=== PATIENT | female | born 1975 | race Caucasian/White ===

== ENCOUNTER 2017-12-30 | Outpatient (CLI) | payer OTHER | END 2017-12-30 08:24 | disposition home or self-care (01) | DX: Z12.31 Encounter for screening mammogram for malignant neoplasm of breast (principal) ==

== ENCOUNTER 2019-01-28 10:14 | Outpatient (CLI) | payer OTHER ==
--- NOTE | 2019-01-28 10:47 | MMO ---
Bilateral MAMMO Bilat Screen [facility]. CLINICAL HISTORY: Patient is 43 years old and is seen for screening. The patient has no family history of breast cancer. The patient has no personal history of cancer. The patient has a history of right Ultrasound Guided Core Biopsy in July, - benign and bilateral Implants in 2011. VIEWS: The views performed were: bilateral craniocaudal with tomosynthesis and bilateral mediolateral oblique with tomosynthesis. FILMS COMPARED: The present examination has been compared to prior imaging studies performed at [facility] on 12/30/2017, and at [facility] on 06/08/2013, 11/23/2014 and 12/27/2016. MAMMOGRAM FINDINGS: The breasts are heterogeneously dense, which could obscure a lesion on mammography. Normal implants are present. There are no suspicious masses, suspicious calcifications, or new areas of architectural distortion. IMPRESSION: THERE IS NO MAMMOGRAPHIC EVIDENCE OF MALIGNANCY. A ROUTINE FOLLOW-UP MAMMOGRAM IN 1 YEAR IS RECOMMENDED. THE RESULTS OF THIS EXAM WERE SENT TO THE PATIENT. ACR BI-RADS Category 2 - Benign finding MAMMOGRAPHY NOTE: 1. A negative mammogram report should not delay a biopsy if a dominant of clinically suspicious mass is present. 2. Approximately 10% to 15% of breast cancers are not detected by mammography. 3. Adenosis and dense breasts may obscure an underlying neoplasm. Reported by: GARRETT GEE MD Electonically Signed: [id number]
== END 2019-01-28 10:15 | disposition home or self-care (01) ==
LOC: BICMAMMO 10:14
PROVIDERS: ATTEND Family Medicine
DX: Z12.31 Encounter for screening mammogram for malignant neoplasm of breast (principal); Z91.89 Other specified personal risk factors, not elsewhere classified; Z98.82 Breast implant status
CPT/HCPCS: 77063; 77067

== ENCOUNTER 2019-02-12 11:25 | Observation (INO) | payer OTHER ==
[2019-02-12 12:13] LABS: Mean Corpuscular Hemoglobin 32.6 pg (27.0-31.0); Mean Corpuscular Volume 95.8 fL (78.0-98.0); RBC Distribution Width 11.3 % (11.5-14.5); White Blood Cell (WBC) Count 8.1 thou/uL (4.8-10.8)
[2019-02-12 12:23] LABS: ALT (SGPT) 17 U/L (8-55); AST (SGOT) 27 U/L (5-34); Albumin 4.6 g/dL (3.5-5.0); Alkaline Phosphatase 39 U/L (40-110); Anion Gap 13 mmol/L (10-20); BUN (Urea Nitrogen) 16 mg/dL (7.0-18.7); Bilirubin, Total 0.3 mg/dL (0.2-1.2); CK (CPK) 211 U/L (29-168); Calc. Creatinine Clearance 0 mL/min (70-130); Calcium 9.6 mg/dL (7.8-10.44); Carbon Dioxide 22 mmol/L (22-29); Chloride 106 mmol/L (98-107); Estimated GFR-MDRD 83; Globulin 3.2 g/dL (2.4-3.5); Glucose 102 mg/dL (70-105); Lipase 12 U/L (8-78); Potassium 4.3 mmol/L (3.5-5.1); Protein, Total 7.8 g/dL (6.0-8.3); Sodium 137 mmol/L (136-145)
[2019-02-12 12:38] LABS: Band 7 % (5-11); Eosinophils 1 % (0-10); Lymphocytes 12 % (21-51); MDiff Complete? YES; Mean Platelet Volume 9.4 fL (7.4-10.4); Monocytes 5 % (0-10); Neutrophil 72 % (42-75); Platelet Clumps SLIGHT; Platelet Morphology Comment PLT clumps seen-ADEQ; Polychromasia SLIGHT = 2-3 cells (100X) (0-2/hpf); Reactive Lymphocytes 3 % (0-10)
--- NOTE | 2019-02-12 13:03 | RAD ---
SINGLE VIEW CHEST: Date: 02/12/19 COMPARISON: 08/10/15. HISTORY: Two episodes of heart racing and near syncope today. Chest pain. FINDINGS: Single view of the chest shows a normal sized cardiomediastinal silhouette. There is no evidence of c onsolidation, mass, or pleural effusion. The bones are unremarkable. IMPRESSION: No evidence of acute cardiopulmonary disease. POS: TPC
--- NOTE | 2019-02-12 13:29 | CT ---
CTA CHEST WITH CONTRAST: Date: 02/12/19 COMPARISON: None. HISTORY: Two episodes of heart racing and near syncope today. TECHNIQUE: Multiple contiguous axial images were obtained in a CTA of the chest with contrast per pulmonary embo lism protocol. 3D oblique MIP reformats and direct coronal reformats were performed. FINDINGS: The pulmonary arteries are well opacified without filling defects to suggest pulmonary emboli. The he art is normal in size without focal cardiac abnormality. No hilar or mediastinal lymphadenopathy seen . No pneumothorax or pleural effusions seen. No focal infiltrates are seen in the lungs. No suspicious pulmonary masses are seen. The osseous structures and visualized subdiaphragmatic structures are unremarkable. The patient has b ilateral breast implants. IMPRESSION: No evidence of pulmonary thromboembolism. POS: TPC
[2019-02-12 16:16] VITALS: BMI 23.7
[2019-02-12] MEDS: Acetaminophen 325 MG TAB PO PRN ×2 (18:12→22:26)
[2019-02-12] MEDS ORDERED: ISOVUE-370 76%-LOCM 1 ML ONE (18:16)
[2019-02-12 18:26] LABS: Troponin I Less than 0.010 ng/mL (< 0.028)
[2019-02-12] MEDS: Famotidine 20 MG TAB PO SCH (20:03)
[2019-02-12] MEDS ORDERED: traMADol HCl 50 MG TAB PO PRN (21:29)
--- NOTE | 2019-02-13 02:53 | HP ---
CHIEF COMPLAINT: Near syncope. HISTORY OF PRESENT ILLNESS: This patient is a 43-year-old female who had a near syncopal episode today while out shopping. She felt generally weak and lightheaded, sat down and felt a little better, but was still feeling "off." She drank some water and went to her car, started to drive in and then the symptoms came back again. She stopped, noted some palpitations. She reclined in her car seat for about 15-20 minutes and then had a 3rd episode, still felt significant lightheadedness. She denied any specific loss of consciousness, chest pain, vertigo, or diaphoresis. She did feel a little nausea and headache since arriving in the hospital and some mild shortness of breath. The patient was clear that she had eaten breakfast this morning and was not likely to be hypoglycemic. This patient had an episode similar to this about 3 years ago. It was actually in August of 2015. She subsequently was seen in the emergency department, but had an appointment with Dr. Rivas. She was referred to his office and discharged from the ER. He did monitor on the patient for a couple weeks, found no significant findings and cleared her from cardiac perspective. She subsequently has seen other physicians including Dr. Rosas who referred to a pituitary specialist and had MRI of the head. She has had a referral to an rehabilitation technician who is working at possible adrenal insufficiency, but indicates her numbers are borderline. She is now following with Dr. Tompkins and is working on hormones. She is on a progesterone pill and testosterone cream to this point. No other etiologies have been discovered. The patient reports that she has fairly frequent headaches. She has generalized fatigue, generalized muscle aches and frequent episodes of feeling generally off-balance or lightheaded, but nothing to the extent of today's since 2016. REVIEW OF SYSTEMS: Palpitations, mild shortness of breath and chronic fatigue. She also reported some numbness in her left upper and lower extremity for about 2 weeks that appears to be better and felt like the entire extremities were somewhat numb and slightly weak. PAST MEDICAL HISTORY: As above. PAST SURGICAL HISTORY: Breast implants, thyroid lumpectomy which was benign in 2004. FAMILY HISTORY: Father had hypertension. Mother had hypertension and diabetes. Sister had leukemia. SOCIAL HISTORY: She denies tobacco or drugs. Has alcohol about three times per week. She is . She is full code and her would be her surrogate decision maker. ALLERGIES: NONE. MEDICATIONS: Progesterone orally and testosterone cream. PHYSICAL EXAMINATION: VITAL SIGNS: BP 129/90, pulse 82, O2 saturations 99% on room air, respirations 21. GENERAL APPEARANCE: Age-appropriate female, no distress. Awake, alert, oriented, pleasant, cooperative. HEENT: YAYO, no OP lesions. Anicteric sclera. NECK: Supple and symmetric. No lymphadenopathy, JVD, or carotid bruits. HEART: Regular rate and rhythm without murmurs, gallops, or rub. LUNGS: Clear to auscultation bilaterally. No wheezes or rales. Good chest wall expansion and air exchange. ABDOMEN: Soft, nontender, and nondistended. Positive bowel sounds. No masses. No organomegaly. EXTREMITIES: No cyanosis, clubbing, or edema. Pulses normal. NEUROLOGIC: The patient is oriented. Cranial nerves grossly intact. She has no focal deficit. She has subtle weakness on exam on the left, normal on the right. Moves all extremities spontaneously. SKIN: Warm and dry. PSYCHIATRIC: Normal affect. Normal behavior. LABORATORY DATA: White count 8.1, hemoglobin 15, platelets were clumped. They appeared adequate. Sodium 137, potassium 4.3, chloride 106, BUN 16, creatinine 0.76, glucose 102. Troponin less than 0.01. LFTs normal. TSH 0.865. D-dimer 0.52. IMAGING: CTA chest negative, chest x-ray negative. EKG shows an incomplete right lung bundle branch block present since 2016 and her CPK level is 211. IMPRESSION AND PLAN: 1. Near syncopal episodes. This patient has had some previous episodes originally in 2016. Since then, she has had chronic fatigue and frequent episodes of feeling lightheaded, but nothing quite to this level. So far, workup appears to be negative. We will keep her on telemetry and continue to trend troponins. I did review much of her information from her outside physicians and the workup there including a MRI of the head. I do not feel we need to repeat that given her D-dimer. We will go ahead and check lower extremity Dopplers given her previous evaluations. Discussed with Dr. Rivas. We will go and get a Cardiology consult. 2. Generalized myalgias. We will check sedimentation rate, CRP, and other workup for possible polymyositis. Job ID: [id number] [facility]
--- NOTE | 2019-02-13 08:07 | ULT ---
DOPPLER VENOUS ULTRASOUND OF BOTH LOWER EXTREMITIES: Date: 02/13/19 INDICATION: Elevated D-Dimer. TECHNIQUE: Wilcox scale, color Doppler, and vascular duplex with spectral analysis was performed of the deep venou s structures of the bilateral lower extremities. The common femoral vein, superficial femoral vein, p roximal greater saphenous vein, proximal greater profunda vein, popliteal, and posterior tibial veins were assessed. FINDINGS: Normal compression, flow, and augmentation was seen within the deep venous structures of both lower e xtremities. IMPRESSION: No evidence of deep venous thrombosis within either lower extremity. POS: DARIEN
[2019-02-13] MEDS ORDERED: Progesterone,Micronized 100 MG CAP PO SCH (09:00)
[2019-02-13] MEDS: Famotidine 20 MG TAB PO SCH (09:28)
[2019-02-13 11:15] VITALS: TEMP 97.7
[2019-02-13 11:16] LABS: ANA Symphony (Qualitative) Negative (Negative); ANA Symphony (Quantitative) 0.2 Ratio (< 0.7 Negative); dsDNA IgG Antibody 4.2 IU/mL (<10 Negative)
--- NOTE | 2019-02-13 14:28 | CON ---
DATE OF CONSULTATION: 02/13/2019 REASON FOR CONSULTATION: Dizziness, lightheadedness, and near syncope. HISTORY OF PRESENT ILLNESS: Ms. Bell is a delightful 43-year-old woman. The patient had an episode yesterday of feeling lightheaded and felt like that she may even faint. She ultimately came to the hospital for further evaluation. The patient felt weak and lightheaded. She is out shopping. She is down, felt a little better, but still feeling "off." She drank some water, went to the car. When she drove, she started feeling lightheaded again. She stopped, noted some palpitations. She reclined in her car seat about 15 to 20 minutes and had another episode, still felt lightheaded. The patient was evaluated for similar type episode three years ago. At that time, she underwent stress testing. She was found to have an incomplete right bundle branch block, for which she underwent Cardiolite stress testing, which was normal and a monitor was also done, which showed no arrhythmias. The patient has had severe symptoms of weakness, fatigue, and lack of energy for several years now. She has been to multiple doctors. She said she saw an sales representative publications, who said she had a "borderline adrenal insufficiency." She also has had breast implants in the past and went back to see her surgeon and they have elected to go ahead and take the breast implants out, in case it is causing her chronic fatigue. PAST MEDICAL HISTORY: As above. PAST SURGICAL HISTORY: Breast implants in the past. FAMILY HISTORY: Father with hypertension. SOCIAL HISTORY: No tobacco or drugs. Alcohol about 3 times a week. ALLERGIES: NONE. MEDICATIONS: Progesterone and testosterone cream. PHYSICAL EXAMINATION: GENERAL: This is a very pleasant patient, in no distress. VITAL SIGNS: Blood pressure in the emergency room was relatively low 113/78, that was on the stretcher in supine. She did receive a liter of fluid. She said she felt better. There is quite a bit of variation in her blood pressure recorded in the emergency room, as high as 134 systolic and as low as 113 systolic. HEENT: Eyes, sclerae are nonicteric. Mouth, mucous membranes moist. NECK: Supple. No lymphadenopathy. LUNGS: Clear. No wheezing, rales, or rhonchi. CARDIAC: Normal S1 and normal S2. There is no murmur, rub, or gallop. ABDOMEN: Soft and nontender. No hepatosplenomegaly. EXTREMITIES: Warm and dry. No clubbing, cyanosis, or edema. PSYCHIATRIC: Mood and affect normal. NEUROLOGIC: Grossly normal. IMAGING STUDIES: EKG, sinus rhythm with an incomplete right bundle branch block as before. The echocardiogram is normal. There is trace tricuspid insufficiency. It is a normal echo. The patient states she does have episodes of lightheadedness for several times a week. It is always when she is standing. The patient did have orthostatic blood pressure check. She did not actually drop her blood pressure, but her heart rate went from the mid 60s up to about 20 points higher just going from a supine to a standing position. Interestingly, she does notice that she feels lightheaded first and then feels palpitations later. ASSESSMENT: 1. Lightheadedness, probably related to orthostatic blood pressure changes. 2. Possible "borderline low adrenal insufficiency.". 3. Fatigue and weakness does not appear to be cardiac in origin, possibly related to breast implants, she is going to have these out. PLAN: 1. At this time, we will increase salt intake in the diet. 2. Ask her to take blood pressures several times a day and record and monitor this. 3. Echocardiogram was normal. 4. Will come by our office on Saturday for event monitor. Should avoid overheating and dehydration. Should avoid dehydration in the postoperative period after she has her breast implants removed. If necessary, can add Florinef 0.1 mg a day. Job ID: [id number]
[2019-02-13 15:36] VITALS: BP 119/73
--- NOTE | 2019-02-14 04:26 | DIS ---
DATE OF ADMISSION: 02/12/2019 DATE OF DISCHARGE: 02/13/2019 DISCHARGE DIAGNOSES: 1. Near syncope. 2. Myalgias. 3. Chronic fatigue. HISTORY OF PRESENT ILLNESS: This patient is a 43-year-old female with history of some near syncopal episodes in 2016. She had followed up in cardiology with Dr. Rivas. At that time, she had apparently some sort of monitoring and was "cleared" from a cardiac perspective. The patient since that time has been dealing with some chronic fatigue and chronic myalgias. She has been through extensive outpatient workup in order to try to get to the source of her fatigue and myalgias, to this point it has not been revealing. She was in her usual state of health on the day of admission when she had an episode of lightheadedness and near syncope while shopping, she sat, recovered, and got in her car, tried to leave and had a couple more episodes, therefore presented to the emergency department. Her workup in the ER was negative including labs and CT of the chest, chest x-ray. EKG did show right bundle branch block, but that was not new, and a CK level slightly was elevated at 211. HOSPITAL COURSE: The patient was placed on observation. She had echocardiogram performed, which was unremarkable. She had a lower extremity venogram, which was also negative, that was performed based on a D-dimer of 0.52. The patient had labs obtained including KATHLEEN screen, which was negative. CRP and sedimentation rate, which were also both normal. From-[id number] DNA was also normal. The patient was seen in consultation by Cardiology, who recommended the patient to increase fluid and salt intake and to follow up with Dr. Rivas on Saturday in order to consider Holter monitor. If feeling any arrhythmia findings, would consider Florinef. The patient was noted to have some variation in her blood pressure; however, formal orthostatics were not abnormal. PHYSICAL EXAMINATION: VITAL SIGNS: On the day of discharge, temperature is 97.7, pulse 65, respirations 10, O2 saturation 99% on room air, BP 119/73. GENERAL APPEARANCE: Age-appropriate female, in no distress. Awake and alert. HEART: Regular rate and rhythm without murmurs, gallops, or rubs. LUNGS: Clear to auscultation bilaterally. ABDOMEN: Benign. EXTREMITIES: No edema. DISPOSITION: The patient is discharged to home. DIET: She is to be on a regular diet. Increase fluids and salt intake. ACTIVITY: She will have activity as tolerated. DISCHARGE MEDICATIONS: She will continue with home medications including a topical testosterone and a progesterone pill. FOLLOWUP: She will follow up with Dr. Tali Tompkins in [address] Leno Rivas on 02/16/2019. She can return to the hospital at anytime should she feel the need to do so. Job ID: [id number]
== END 2019-02-13 15:36 | disposition home or self-care (01) ==
LOC: ERS 11:25 → 2SW 14:20
PROVIDERS: ADMIT Internal Medicine; ATTEND Internal Medicine
DX: R55 Syncope and collapse (principal); R00.2 Palpitations; M79.10 Myalgia, unspecified site; R53.82 Chronic fatigue, unspecified; I45.10 Unspecified right bundle-branch block; Z79.899 Other long term (current) drug therapy
CPT/HCPCS: 36415; 71045; 71275; 80053; 82550; 83690; 84443; 84484; 85025; 85379; 85652; 86038; 86140; 86225; 86235; 93005; 93306; 93970; 94760; G0378; Q9966

== ENCOUNTER 2019-12-17 08:28 | Outpatient (CLI) | payer OTHER ==
--- NOTE | 2019-12-17 09:57 | MRI ---
MRI Abdomen WO Con HISTORY: Adrenal insufficiency COMPARISON: None. FINDINGS: The liver, spleen, pancreas, adrenal glands, gallbladder and kidneys appear normal on the noncontrast ed exam. No free fluid or lymphadenopathy seen. The aortic caliber is normal. Bone marrow signal is normal. IMPRESSION: No evidence of adrenal mass.
== END 2019-12-17 08:29 | disposition home or self-care (01) ==
LOC: SCSMRI 08:28
PROVIDERS: ATTEND Family Medicine
DX: E27.40 Unspecified adrenocortical insufficiency (principal)
CPT/HCPCS: 74181

== ENCOUNTER 2020-02-17 19:00 | Outpatient (CLI) | payer BC, OTHER | END 2020-02-17 19:01 | disposition home or self-care (01) | LOC: SLEEPLAB 19:00 | PROVIDERS: ATTEND Psychiatry & Neurology Neurology | DX: G47.33 Obstructive sleep apnea (adult) (pediatric) (principal) | CPT/HCPCS: 95810 ==